=== PATIENT | female | born 1970 | race Two or more races ===

== ENCOUNTER → 2024-12-18 | Emergency (ER) | payer OTHER ==
[~2024-12-18] VITALS: Ht 157.5 cm; Wt 82.1 kg
[~2024-12-18] MED LIST: ATENOLOL50 MG; ATORVASTATIN CA10 MG PO; FOLIC ACID20 MG; METHYLPREDNISOLONE SOD SUCC 125 MG VIAL IM STA; METHYLPREDNISOLONE SOD SUCC 125 MG VIAL ONE; OZEMPIC1 MG/0.71 SQ; VALSARTAN-HCTZ1 EAC1 PO; WATER FOR INJ.,BACTERIOSTATIC 30 ML VIAL IJ ONE
== END | disposition home or self-care (01) ==
LOC: ER 11:28
DX: M77.01 Medial epicondylitis, right elbow (principal); Z88.6 Allergy status to analgesic agent